=== PATIENT | female | born 1975 | race Two or more races ===

== ENCOUNTER 2019-05-21 07:58 | Emergency (ER) | payer OTHER ==
[2019-05-21 08:23] VITALS: BP 120/74
[2019-05-21] MEDS ORDERED: DEXAMETHASONE 10 MG/ML VIAL PO STA (08:24)
[2019-05-21] MEDS ORDERED: PSEUDOEPHEDRINE 30 MG TABLET PO STA (08:24)
[2019-05-21] MEDS ORDERED: CHERRY SYRUP 10 ML UDC PO ONE (08:24)
[2019-05-21] MEDS ORDERED: CETIRIZINE 10 MG TABLET PO STA (08:25)
--- NOTE | 2019-05-21 08:29 | ED Physician Documentation ---
History of Present Illness - Stated complaint Stated Complaint: LT EAR PAIN - Chief complaint Chief Complaint: Heent - History obtained from History obtained from: Patient - History of Present Illness Timing: How many days ago (4) Pain level max: 8 Pain level now: 7 - Additonal information Additional information: 44 year old female with L ear pain x 4-5 days. Has had rhinorrhea, congestion, mild cough. no fever. Nothing makes it better. Nothing makes it worse. Review of Systems Constitutional: denies: Fever, Chills Cardiac: denies: Chest pain / pressure Respiratory: denies: Cough GI: denies: Vomiting Skin: denies: Rash PD PAST MEDICAL HISTORY - Past Medical History Past Medical History: No - Past Surgical History Past Surgical History: No - Present Medications Home Medications: Ambulatory Orders Medication Instructions Recorded Confirmed Cetirizine HCl/Pseudoephedrine 1 each PO BID PRN #30 tab.er.12h 05/21/19 [Zyrtec-D Tablet] Ibuprofen [Motrin] 800 mg PO Q8H PRN #30 tablet 05/21/19 - Allergies Allergies/Adverse Reactions: Allergies Allergy/AdvReac Type Severity Reaction Status Date / Time lidocaine [From Xylocaine] Allergy Unknown Verified 05/21/19 08:28 Penicillins Allergy Unknown Verified 05/21/19 08:28 - Living Situation Living Situation: reports: With family Living Arrangement: reports: At home - Social History Does the pt smoke?: No Does the pt drink ETOH?: No Does the pt have substance abuse?: No - Family History Family history: reports: Non contributory PD ED PE NORMAL - Vitals Vital signs reviewed: Yes - General General: Alert and oriented X 3, No acute distress, Well developed/nourished - HEENT HEENT: PERRL, Moist mucous membranes, Pharynx benign, Other (R TM normal. L TM is retracted, no fluid.) - Neck Neck: Supple, no meningeal sign, No adenopathy - Cardiac Cardiac: RRR - Respiratory Respiratory: No respiratory distress, Clear bilaterally - Derm Derm: Warm and dry, No rash - Neuro Neuro: Alert and oriented X 3 - Psych Psych: Normal mood, Normal affect Results - Vitals Vitals: Vital Signs - 24 hr 05/21/19 08:21 Temperature 36.6 C Heart Rate 74 Respiratory 16 Rate Blood Pressure 120/74 O2 Saturation 97 Oxygen O2 Source Room air PD MEDICAL DECISION MAKING - ED course Complexity details: considered differential, d/w patient ED course: Pt with viral URI and eustachian tube dysfunction. Will place on Decongestants for home. Given dexamethasone and pseudoephedrine here. Patient counseled regarding signs and symptoms for which I believe and urgent re-evaluation would be necessary. Patient with good understanding of and agreement to plan and is comfortable going home at this time This document was made in part using voice recognition software. While efforts are made to proofread this document, sound alike and grammatical errors may occur. Departure - Departure Disposition: Home, Self Care Clinical Impression: Viral URI, Ear pain, left Condition: Good Health Concerns: ear pain Plan of Treatment: decongestants Care Goals: improve symptoms Assessment: uri Instructions: ED URI Viral Follow-Up: Jericho Herrera PA [Primary Care Provider] - As Needed Prescriptions: Cetirizine HCl/Pseudoephedrine [Zyrtec-D Tablet] 1 each PO BID PRN #30 tab.er. 12h PRN Reason: nasal congestion Ibuprofen [Motrin] 800 mg PO Q8H PRN #30 tablet PRN Reason: PAIN &/OR FEVER Comments: Use the medications as prescribed. Return if you worsen.
== END 2019-05-21 08:45 | disposition home or self-care (01) ==
LOC: ED 07:58
DX: J06.9 Acute upper respiratory infection, unspecified (principal); H92.02 Otalgia, left ear; H69.82 Other specified disorders of Eustachian tube, left ear; Z88.0 Allergy status to penicillin
CPT/HCPCS: 99283; A9270